=== PATIENT | male | born 1995 | race Two or more races ===

== ENCOUNTER 2022-09-04 18:30 | Emergency (ER) | payer SELFPAY ==
[~2022-09-04] VITALS: Ht 193 cm; Wt 120.0 kg
[2022-09-04 19:17] LABS: Basophils # (auto) 0 10 ^3/uL (0-0.2); Basophils % (auto) 0.4 % (0.0-2.0); Eosinophils # (auto) 0 10 ^3/uL (0-0.8); Eosinophils % (auto) 0.2 % (0.0-7.0); Hematocrit 44.9 % (41.0-53.0); Hemoglobin 15.6 g/dL (13.5-17.5); Lymphocytes # (auto) 0.6 10 ^3/uL (0.4-5.4); Mean Corpuscular Hemoglobin 30.7 pg (28.0-32.0); Mean Corpuscular Hgb Conc. 34.8 g/dL (32.0-36.0); Mean Corpuscular Volume 88.5 fL (80.0-100.0); Monocytes # (auto) 0.5 10 ^3/uL (0-1.3); Monocytes % (auto) 7.5 % (0.0-12.0); Neutrophils # (auto) 6.1 10 ^3/uL (1.6-8.6); Neutrophils % (auto) 83.9 % (37.0-80.0); Red Blood Cells 5.07 10^6/uL (4.5-5.90); White Blood Cell 7.3 10^3/uL (4.4-10.8)
[2022-09-04] MEDS ORDERED: IBUPROFEN 600 MG TAB PO ONE (19:30)
[2022-09-04] MEDS ORDERED: ONDANSETRON ODT 4 MG TAB PO ONE (19:30)
[2022-09-04 19:36] LABS: Albumin 4.1 g/dL (3.4-5.0); BUN/Creatinine Ratio 13.9; Calcium 9.1 mg/dL (8.5-10.1)
[2022-09-04 19:46] LABS: Bilirubin, Total 1.1 mg/dL (0.2-1.0); Total Protein 7.4 g/dL (6.4-8.2)
[2022-09-04 20:32] LABS: Urine Bacteria NONE SEEN /hpf (None Seen); Urine Blood 3+ /uL (Negative); Urine Mucus FEW (None Seen); Urine Specific Gravity 1.044 (1.001-1.035); Urine WBC 2 /hpf (0 - 3)
[2022-09-04 22:20] VITALS: BP 124/63
== END 2022-09-04 22:24 | disposition home or self-care (01) ==
LOC: ER 18:30
DX: J06.9 Acute upper respiratory infection, unspecified (principal); B97.89 Other viral agents as the cause of diseases classified elsewhere; M79.10 Myalgia, unspecified site; R05.9 Cough, unspecified; Z20.822 Contact with and (suspected) exposure to COVID-19
CPT/HCPCS: 36415; 80053; 81001; 85025; 87426; 87804; 99283; Q0162

== ENCOUNTER 2025-04-23 00:03 | Emergency (ER) | payer OTHER, MEDICAID ==
[~2025-04-23] VITALS: Ht 193 cm; Wt 131.8 kg
[~2025-04-23 00:03] MED LIST: ARTIOIN6 OP; ERY05OO OP
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
[2025-04-23] MEDS: HYDROcodone-ACET 5/325MG TAB PO ONE (04:19)
[2025-04-23] MEDS: ONDANSETRON ODT 4 MG TAB PO ONE (04:20)
--- NOTE | 2025-04-23 04:22 | DVH ---
EXAM: CT CERVICAL WITHOUT CONTRAST HISTORY: head injury with neck pain COMPARISON: None CTDIvol 26 mGy, DLP 755 mGy*cm. TECHNIQUE: Multiple axial CT images of the spine were obtained using bone algorithm. Axial and shay l reformatting was done. Bone and soft tissue windows were reviewed. FINDINGS: No evidence of vertebral fracture or compression deformity. Normal alignment of the craniocervical ju nction. Straightening of normal lordotic curvature without listhesis. No significant degenerative ch sherlyn. The imaged intracranial contents, neck soft tissues, and upper chest are unremarkable. IMPRESSION: 1. No acute finding of the cervical spine.
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
[2025-04-23] MEDS ORDERED: ZOFR4T PO (05:06)
[2025-04-23] MEDS ORDERED: HYDR-4902 PO (05:06)
[2025-04-23] MEDS ORDERED: METH-1181 PO (05:06)
[2025-04-23 05:46] VITALS: BP 123/91; PULSE 72; RESP 16; TEMP 97.7; O2SAT 96
== END 2025-04-23 05:52 | disposition home or self-care (01) ==
LOC: ER 00:03
DX: S06.0X0A Concussion without loss of consciousness, initial encounter (principal); S16.1XXA Strain of muscle, fascia and tendon at neck level, initial encounter; S00.83XA Contusion of other part of head, initial encounter; I10 Essential (primary) hypertension; Z79.899 Other long term (current) drug therapy; W21.11XA Struck by baseball bat, initial encounter; Y93.64 Activity, baseball; Y92.89 Other specified places as the place of occurrence of the external cause; Y99.8 Other external cause status
CPT/HCPCS: 70450; 72125; 99284; Q0162